=== PATIENT | female | born 1995 | race Caucasian/White ===

== ENCOUNTER 2019-08-09 11:34 | Outpatient (CLI) | payer OTHER ==
[~2019-08-09] VITALS: Ht 172.7 cm; Wt 66.6 kg
[2019-08-09 11:48] VITALS: BP 136/90
[2019-08-09] MEDS ORDERED: PRENTAB9 PO (12:00)
--- NOTE | 2019-08-09 12:40 | IPNPDOC ---
Text Note Date of Service The patient was seen on 08/09/19. NOTE OB Considerations: - [facility] is a 24yo G1 at 24+6wks by LMP ([id number] [id number]) presents for decreased f etal movement. She reports that she has been getting her house ready as their house hold goods leave Sunday [id number]. She reports that she normally feels her move all the time. She reports that she had not felt her baby move since yesterday. She denies ctx, vaginal bleeding, LOF, Headache, vision changes, RUQ pain. VS: reviewed, mild range with Diastolic of 90, repeat normal, nontachycardic, afebrile. GEN: WNWD, NAD ABD: soft, Gravid, NT EXT: No edema FHT: 140s, moderate variability, appropriate for gestational age TOCO: quiet Limited bedside US: Cephalic, Anterior placenta, + Cardiac activity, grossly adequate fluid, gross movements noted on US A/P: SIUP at 24+6wks with Decreased movement, resolved in triage, appropriate NST for gestational age, movements noted on US. Initial blood pressure was notable for a diastolic of 90, the patient was visibly up set and c rying with a normal repeat BP, do not suspect HTN in . - Discussed strict return, PTL precautions - Encourage hydration - Discussed movements and kick counts usually start at 28wks - Follow up at [facility] for [facility] care DO MOSES Logan,Alanis, I+O VS, Alanis, I+O Vital Signs Date Time Temp Pulse Resp B/P (MAP) Pulse Ox O2 Delivery O2 Flow Rate FiO2 08/09/19 11:48 98.1 114 16 136/90 (105) ANDRIA PARIKH DO Aug 09, 2019 12:40
== END 2019-08-09 12:26 | disposition home or self-care (01) ==
LOC: M LDO 11:34
PROVIDERS: ATTEND Obstetrics & Gynecology
DX: O36.8120 Decreased fetal movements, second trimester, not applicable or unspecified (principal); Z3A.24 24 weeks gestation of pregnancy
CPT/HCPCS: 76815; G0378; G0463